=== PATIENT | male | born 1995 | race Caucasian/White ===

== ENCOUNTER 2021-03-03 10:09 | Inpatient (IN) ==
[2021-03-03] MEDS ORDERED: GI COCKTAIL ED USE PO ONE (10:39)
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
[2021-03-03 12:24] LABS: Basophils # (auto) 0.01 K/uL (0-0.2); Basophils % (auto) 0.2 %; Eosinophils # (auto) 0.07 K/uL (0-0.5); Eosinophils % (auto) 1.1 %; Hematocrit (blood only) 43.5 % (42-52); Hemoglobin 15.3 g/dL (14.0-18.0); Immature Granulocytes # (auto) 0.01 K/uL (0.00-0.02); Immature Granulocytes % (auto) 0.2 %; Lymphocytes # (auto) 1.58 K/uL (1.2-3.4); Lymphocytes % (auto) 24.2 %; Mean Corpuscular Hemoglobin 31.1 pg (25-34); Mean Corpuscular Hgb Conc 35.2 g/dL (32-36); Mean Corpuscular Volume 88.4 fL (80-100); Mean Platelet Volume 10.4 fL (7.4-10.4); Monocytes # (auto) 0.54 K/uL (0.11-0.59); Monocytes % (auto) 8.3 %; Neutrophils # (auto) 4.32 K/uL (1.4-6.5); Platelet Count 296 K/uL (130-400); RDW Coefficient of Variation 13.5 % (11.5-14.5); RDW Standard Deviation 43.5 fL (36.4-46.3); Red Blood Count 4.92 M/uL (4.7-6.1); White Blood Count 6.53 K/uL (4.8-10.8)
[2021-03-03 12:37] LABS: Albumin Level 4.7 gm/dl (3.4-5.0); BUN Creatinine Ratio 10.7 (10-20); Calcium 9.4 mg/dl (8.5-10.1); Creatinine Clr Calc Pharmacy 110.7 ml/min; Est GFR (African American) 130.9; Est GFR (Non-African American) 112.9; Potassium 4.3 mmol/L (3.5-5.1)
[2021-03-03 12:41] LABS: Acetaminophen 2 ug/ml (10-30); Salicylate < 1.7 mg/dl (2.8-20)
[2021-03-03 12:48] LABS: Albumin Globulin Ratio 1.4 (0.9-2); Bilirubin,Total 0.6 mg/dl (0.2-1); Globulin 3.4 gm/dl (2.5-4.0); Thyroid Stimulating Hormone 1.33 uIu/ml (0.300-4.500); Total Protein 8.1 gm/dl (6.4-8.2)
[2021-03-03 13:30] LABS: Appearance Urine Cloudy (Clear); Bacteria Urine Automated Negative (Negative); Bilirubin Urine Negative (Negative); Blood Urine Negative (Negative); Cast Urine Automated 0 /lpf (0-5); Color Urine Yellow; Glucose Urine UA Negative (Negative); Ketones Urine Trace (Negative); Leukocyte Esterase Urine Negative (Negative); Nitrite Urine Negative (Negative); Protein Urine Negative (Negative); RBC Urine Automated 0-4 /hpf (0-4); Urobilinogen Urine Negative (Negative)
[2021-03-03 14:01] LABS: Amphetamines+Metham, Urine Neg (Neg); Barbiturates, Urine Neg (Neg); Benzodiazepine, Urine Neg (Neg); Cocaine, Urine Neg (Neg); MDMA (Ecstacy), Urine Neg (Neg); Methadone, Urine Neg (Neg); Opiate, Urine Neg (Neg); Phencyclidine, Urine Neg (Neg)
[2021-03-03 14:13] LABS: Influenza A virus by PCR Negative (Neg); Influenza B virus by PCR Negative (Neg); RSV by PCR Negative (Neg); SARS CoV2 RNA(COVID-19) InHosp NEGATIVE (Negative)
[2021-03-03] MEDS ORDERED: ACETAMINOPHEN 500 MG TAB PO STA (14:26)
[2021-03-03] MEDS ORDERED: MAGNESIUM HYDROXIDE SUSP 30 ML UDC PO PRN (17:42)
[2021-03-03] MEDS ORDERED: BISMUTH SUBSALICYLATE LIQD 236 ML PO PRN (17:42)
[2021-03-03] MEDS ORDERED: SODIUM CHLORIDE 0.65% NA SOLN 45 ML (OCEAN) PRN (17:42)
[2021-03-03] MEDS ORDERED: hydrOXYzine HCl 25 MG TAB PO PRN (17:42)
[2021-03-03] MEDS ORDERED: ALUMINUM/MAGNESIUM SUSP 30 ML UDC PO PRN (17:42)
[2021-03-03] MEDS ORDERED: GABAPENTIN 300 MG CAP PO STA (18:24)
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
[2021-03-03] MEDS: diazePAM 5 MG TABLET PO SCH (20:56)
[2021-03-03] MEDS: GABAPENTIN 300 MG CAP PO SCH (20:56)
[2021-03-03] MEDS: ACETAMINOPHEN 325 MG TAB PO PRN (20:57)
[2021-03-03] MEDS: hydrOXYzine HCl 25 MG TAB PO PRN (20:58)
[2021-03-03] MEDS ORDERED: LORazepam 0.5 MG TAB PO SCH (21:00)
[2021-03-03] MEDS ORDERED: diazePAM 5 MG TABLET PO SCH (21:00)
--- NOTE | 2021-03-04 06:22 | Electrocardiogram Report ---
Test Reason : Blood Pressure : / mmHG Vent. Rate : 055 BPM Atrial Rate : 055 BPM P-R Int : 132 ms QRS Dur : 080 ms QT Int : 392 ms P-R-T Axes : 063 087 067 degrees QTc Int : 375 ms Sinus bradycardia Otherwise normal ECG When compared with ECG of 19-FEB-2021 12:40, No significant change was found Confirmed by Rene Love ([id number]) on 03/04/2021 6:22:16 AM Referred By: Confirmed By:Rene Love
[2021-03-04] MEDS: GABAPENTIN 300 MG CAP PO SCH ×3 (09:37→21:05)
[2021-03-04] MEDS: diazePAM 5 MG TABLET PO SCH ×2 (09:37→21:05)
[2021-03-04] MEDS: SERTRALINE HCL 50 MG TABLET PO SCH (09:37)
[2021-03-04] MEDS ORDERED: PSEUDOEPHEDRINE HCL 30 MG TAB PO PRN (10:10)
[2021-03-04] MEDS: LIDOCAINE 5% 1 PATCH TD SCH (11:13)
[2021-03-04] MEDS: PANTOprazole 40 MG TAB PO SCH (11:13)
--- NOTE | 2021-03-04 14:18 | Psychiatric Progress Note ---
Date of Service March 04, 2021 Impression / Recommendations Impression This 25-year-old man has presented to the emergency department 16 times recently. On each presentation he offers multiple vague physical complaints involving multiple systems, and on examination and extensive testing no underlying explanatory illnesses or abnormalities can be found that might explain the patient's multiple complaints. In fact, some of the complaints do not seem to be consistent with anatomy. The presents with symptoms consistent with somatization disorder, but there are also marked features of hypochondriasis and obsessive-compulsive disorder, as well as certain obsessive- compulsive personality traits. The nature and degree of these symptoms are so severe that he has essentially been unable to function at home and, by his own admission, is essentially confined to bed most of the time at this point. He is also been losing weight fairly rapidly. He notes that his obsessive concerns about his physical health, and his multiple somatic complaints are such that he has not wanted to eat, and within this context has lost an estimated 25 to 30 pounds in the past month or two. 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 Patient also reports that he has a medical marijuana card, but uses marijuana infrequently. Reviewed 03/04/21. (1) Somatization disorder: severe somatic symptom disorder, Dr. Preciado initiated change of Ativan to Valium yesterday, restart of Neurontin, and start of Zoloft for obsessiveness on 03/03 so will just monitor response, in meantime offer small gestures of symptomatic releif with antacid, decongestant, lidoderm patch prn as comfort measure. MNPR as above. He is clearly unable to function outside of the hospital at this time. Inventory Assets Strengths: Motivated to treatment. Cooperative. Supportive family. Intelligent. Educated. Needs: Relief from obsessive symptoms regarding his physical health. Risk Factors Assessment Male: Yes : Yes Do You Have Access To A Gun?: No Health Problems: Yes (The patient is convinced that he has serious health problems.) Mental Health Diagnoses: Yes Substance Use Disorders: No Previous Attempt: No Family History of Suicide: No Previous Psychiatric Hospitalization: No Hopelessness: No Smoker: No Protective Factors Assessment Orthodox Beliefs: No : No (Committed romantic relationship with girlfriend) Responsible for Young Children: No Employed: No Stable Relationships: Yes Supportive Family: Yes Good Rapport with Provider: Yes Absence of Any Risk Factors Above: No Interval History Identifying Information 25 yo male admit 201 for inability to care for self following multiple trips to ED for somatic symptoms. Chief Complaint "my bones ache, I know there is something wrong with me that they just haven't found yet". Review of Systems Sleep Information Total Hours of Sleep: 7.25 Meal Information Percent Meal Consumed - Breakfast: 95 Percent Meal Consumed - Lunch: 90 Subjective Subjective Patient was seen & assessed and interval progress reviewed with nursing and social work. Believes he is weak and immunologically compromised. Focussed on diffuse nerve pain, bloody nose (tinged on tissue when blows nose), facial bone pain, hopelessness about his life in general and ability to get appropriate medical work up. unable to function "normally", doesn't feel he is safe to be in group (to experience this around others) and became extremely tearful relating his concerns about his room/bathroom. MNPR ordered due to severity of patient's condition. Physical Exam Psychiatric Orientation: alert, oriented x 3 and cooperative Apperance: appropriately dressed, appropriately groomed and appeared stated age Eye Contact: good eye contact Motor Behavior: steady gait and station Affect: + anxious affect Mood: + depressed mood and + anxious mood Thought Process: + circumstantial thought process Thought Content: reality based without delusions Suicidal Thoughts: denies suicidal thoughts Homicidal Thoughts: denies homicidal thoughts Hallucinations: no auditory hallucinations and no visual hallucinations Cognition: recent memory grossly intact and language grossly intact Estimated Intelligence: + above average estimated intelligence Insight: + limited insight Judgement: + limited judgement Vital Signs (Past 24 Hours) Last Vital Signs Temp 36.5 C 03/04/21 06:42 Pulse 75 03/04/21 06:42 Resp 16 03/04/21 06:42 BP 132/69 03/04/21 06:42 Pulse Ox 99 03/03/21 19:02 Results & Data ([facility]) Laboratory Results Laboratory Results - last 24 hr 03/03/21 13:27 SARS-CoV-2 (PCR) NEGATIVE Influenza Type A (PCR) Negative Influenza Type B (PCR) Negative RSV (RT-PCR) Negative Current Inpatient Medications Current Inpatient Medications: Current Inpatient Medications Acetaminophen (Acetaminophen 325 Mg Tab) 650 mg PO Q4H PRN PRN Reason: Headache or Minor Fever Stop: 04/02/21 17:41 Last Admin: 03/03/21 20:57 Dose: 650 mg Documented by: Al Hydrox/Mg Hydrox/Simethicone (Aluminum/Magnesium Susp 30 Ml Udc) 30 ml PO Q4H PRN PRN Reason: GI Upset Stop: 04/02/21 17:41 Bismuth Subsalicylate (Bismuth Subsalicylate Liqd 236 Ml) 15 ml PO PRN PRN PRN Reason: Loose Stool Stop: 04/02/21 17:41 Diazepam (Diazepam 5 Mg Tablet) 5 mg PO BID ERIC Stop: 04/02/21 20:59 Last Admin: 03/04/21 09:37 Dose: 5 mg Documented by: Gabapentin (Gabapentin 300 Mg Cap) 300 mg PO TID ERIC Stop: 04/02/21 20:59 Last Admin: 03/04/21 13:27 Dose: 300 mg Documented by: Hydroxyzine HCl (Hydroxyzine Hcl 25 Mg Tab) 50 mg PO HSZ PRN PRN Reason: Insomnia Stop: 04/02/21 17:41 Last Admin: 03/03/21 20:58 Dose: 50 mg Documented by: Hydroxyzine HCl (Hydroxyzine Hcl 25 Mg Tab) 25 mg PO Q4H PRN PRN Reason: Anxiety Stop: 04/02/21 17:41 Lactobacillus Acidoph/Casei/Rhamnos (Advanced Probiotic 1250 Mg Capsule) 2 cap PO DAILY ER[facility] Stop: 04/04/21 08:59 Lidocaine (Lidocaine 5% 1 Patch) 1 patch TD DAILY ERIC Stop: 04/03/21 10:29 Last Admin: 03/04/21 11:13 Dose: 1 patch Documented by: Magnesium Hydroxide (Magnesium Hydroxide Susp 30 Ml Udc) 30 ml PO DAILY PRN PRN Reason: Constipation Stop: 04/02/21 17:41 Miscellaneous (Remove Lidoderm Patch) 1 ea N/A 2100 ERIC Stop: 04/03/21 20:59 Pantoprazole Sodium (Pantoprazole 40 Mg Tab) 40 mg PO QAM ERIC Stop: 04/03/21 10:14 Last Admin: 03/04/21 11:13 Dose: 40 mg Documented by: Pseudoephedrine HCl (Pseudoephedrine Hcl 30 Mg Tab) 30 mg PO Q6H PRN PRN Reason: Congestion Stop: 04/03/21 10:09 Sertraline HCl (Sertraline Hcl 50 Mg Tablet) 50 mg PO QAM ERIC Stop: 04/03/21 08:59 Last Admin: 03/04/21 09:37 Dose: 50 mg Documented by: Sodium Chloride (Sodium Chloride 0.65% Na Soln 45 Ml ([place])) 1 - 2 sprays NA PRN PRN PRN Reason: Nasal Dryness/Congestion Stop: 04/02/21 17:41 Mental Health & Subst Abuse Tx Therapist Name of Therapist: [facility] Therapist's Date of Therapist Appointment: 03/08/21 Time of Therapist Appointment: 1:30pm Post Discharge Appointments Primary Care Physician Name Of Family Doctor: Brian [facility] Date of Appointment with PCP: 03/08/21 Time of Appointment with PCP: 8:40am Contact Information Discharge Discharge Address: [address] [place] [id number]
[2021-03-04] MEDS: MULTIVITAMIN TAB PO SCH (16:51)
[2021-03-04] MEDS: hydrOXYzine HCl 25 MG TAB PO PRN (22:59)
[2021-03-05] MEDS: LIDOCAINE 5% 1 PATCH TD SCH (08:38)
[2021-03-05] MEDS: GABAPENTIN 300 MG CAP PO SCH ×3 (08:39→20:55)
[2021-03-05] MEDS: ADVANCED PROBIOTIC 1250 MG CAPSULE PO SCH (08:39)
[2021-03-05] MEDS: PANTOprazole 40 MG TAB PO SCH (08:39)
[2021-03-05] MEDS: SERTRALINE HCL 50 MG TABLET PO SCH (08:39)
[2021-03-05] MEDS: MULTIVITAMIN TAB PO SCH (08:39)
[2021-03-05] MEDS: diazePAM 5 MG TABLET PO SCH ×2 (08:39→20:55)
[2021-03-05] MEDS: PSEUDOEPHEDRINE HCL 30 MG TAB PO SCH ×3 (10:52→20:55)
[2021-03-05 11:17] LABS: Iron 92 mcg/dl (35-175); Total Iron Binding Capacity 352 mcg/dl (250-450)
--- NOTE | 2021-03-05 11:19 | Psychiatric Progress Note ---
Date of Service March 05, 2021 Impression / Recommendations Impression This 25-year-old man has presented to the emergency department 16 times recently. On each presentation he offers multiple vague physical complaints involving multiple systems, and on examination and extensive testing no underlying explanatory illnesses or abnormalities can be found that might explain the patient's multiple complaints. In fact, some of the complaints do not seem to be consistent with anatomy. The presents with symptoms consistent with somatization disorder, but there are also marked features of hypochondriasis and obsessive-compulsive disorder, as well as certain obsessive- compulsive personality traits. The nature and degree of these symptoms are so severe that he has essentially been unable to function at home and, by his own admission, is essentially confined to bed most of the time at this point. He is also been losing weight fairly rapidly. He notes that his obsessive concerns about his physical health, and his multiple somatic complaints are such that he has not wanted to eat, and within this context has lost an estimated 25 to 30 pounds in the past month or two. 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 Patient also reports that he has a medical marijuana card, but uses marijuana infrequently. Reviewed 03/04/21. no improvement in somatic obsessions (1) Somatization disorder: 03/04--severe somatic symptom disorder, Dr. Preciado initiated change of Ativan to Valium yesterday, restart of Neurontin, and start of Zoloft for obsessiveness on 03/03 so will just monitor response, in meantime offer small gestures of symptomatic releif with antacid, decongestant, lidoderm patch prn as comfort measure. MNPR as above. He is clearly unable to function outside of the hospital at this time. 03/06--standing order meds for symptoms that do appear physical (sinus), will check ESR to determine if more rheum work up appropriate here. B12 and iron panel to rule out deficiency as cause of restless legs. Inventory Assets Strengths: Motivated to treatment. Cooperative. Supportive family. Intelligent. Educated. Needs: Relief from obsessive symptoms regarding his physical health. Risk Factors Assessment Male: Yes : Yes Do You Have Access To A Gun?: No Health Problems: Yes (The patient is convinced that he has serious health problems.) Mental Health Diagnoses: Yes Substance Use Disorders: No Previous Attempt: No Family History of Suicide: No Previous Psychiatric Hospitalization: No Hopelessness: No Smoker: No Protective Factors Assessment Holiness Beliefs: No : No (Committed romantic relationship with girlfriend) Responsible for Young Children: No Employed: No Stable Relationships: Yes Supportive Family: Yes Good Rapport with Provider: Yes Absence of Any Risk Factors Above: No Interval History Identifying Information 25 yo male admit 201 for inability to care for self following multiple trips to ED for somatic symptoms. Chief Complaint "I really need an MRI as I'm convinced I have autoimmune disease". Review of Systems Sleep Information Total Hours of Sleep: 6.5 Meal Information Percent Meal Consumed - Breakfast: 90 Percent Meal Consumed - Lunch: 90 Percent Meal Consumed - Dinner: 95 Subjective Subjective Patient was seen & assessed and interval progress reviewed with nursing and social work. patient is suggesting since "can't get the care I need here" that he would rather leave the hospital but has not formally requested to withdrawal from care. He has been listing his symptoms and read the list, were all the same symptoms that we discussed yesterday and seemed unaware of this. When I asked about sexual function on ROS he assumed I was asking due to HIV test due to "risky behavior" and I assured him I was just wondering the impact of his symptoms on intimacy with girlfriend. He notes decreased interest. He remained mainly focussed on his sinus related pain, had requested decogestant so ordered scheduled. Appears less restless in group activities. Notes symptoms (obsessions) are worse in the am and after a nap. He admits to past purging and some degree of ongoing orthorexia at home with eating in that looks at packaging and aims to stay below percentages. States he spits up blood this am (unwitnessed) and "not my sinuses" and was given a specimen cup to obtain sample if happens again. Physical Exam Psychiatric Orientation: alert and oriented x 3 Apperance: appropriately dressed, appropriately groomed and appeared stated age Eye Contact: good eye contact Motor Behavior: steady gait and station Affect: + anxious affect Mood: + depressed mood and + anxious mood Thought Process: + perseveration Thought Content: + hopelessness Suicidal Thoughts: denies suicidal thoughts Homicidal Thoughts: denies homicidal thoughts Hallucinations: no auditory hallucinations, no visual hallucinations and no gustatory hallucinations Cognition: language grossly intact Estimated Intelligence: + above average estimated intelligence Insight: + limited insight Judgement: + limited judgement Vital Signs (Past 24 Hours) Last Vital Signs Temp 36.4 C L 03/05/21 06:52 Pulse 81 03/05/21 06:52 Resp 17 03/05/21 06:52 BP 118/79 03/05/21 06:52 Pulse Ox 99 03/03/21 19:02 Results & Data ([facility]) Laboratory Results Laboratory Results - last 24 hr 03/05/21 03/05/21 03/05/21 10:45 10:45 10:45 ESR 4 Iron Pending TIBC Pending Vitamin B12 Pending Folate Pending Current Inpatient Medications Current Inpatient Medications: Current Inpatient Medications Acetaminophen (Acetaminophen 325 Mg Tab) 650 mg PO Q4H PRN PRN Reason: Headache or Minor Fever Stop: 04/02/21 17:41 Last Admin: 03/03/21 20:57 Dose: 650 mg Documented by: Al Hydrox/Mg Hydrox/Simethicone (Aluminum/Magnesium Susp 30 Ml Udc) 30 ml PO Q4H PRN PRN Reason: GI Upset Stop: 04/02/21 17:41 Bismuth Subsalicylate (Bismuth Subsalicylate Liqd 236 Ml) 15 ml PO PRN PRN PRN Reason: Loose Stool Stop: 04/02/21 17:41 Diazepam (Diazepam 5 Mg Tablet) 5 mg PO BID [facility] Stop: 04/02/21 20:59 Last Admin: 03/05/21 08:39 Dose: 5 mg Documented by: Gabapentin (Gabapentin 300 Mg Cap) 300 mg PO TID [facility] Stop: 04/02/21 20:59 Last Admin: 03/05/21 08:39 Dose: 300 mg Documented by: Hydroxyzine HCl (Hydroxyzine Hcl 25 Mg Tab) 50 mg PO HSZ PRN PRN Reason: Insomnia Stop: 04/02/21 17:41 Last Admin: 03/04/21 22:59 Dose: 50 mg Documented by: Hydroxyzine HCl (Hydroxyzine Hcl 25 Mg Tab) 25 mg PO Q4H PRN PRN Reason: Anxiety Stop: 04/02/21 17:41 Last Admin: 03/04/21 18:16 Dose: 25 mg Documented by: Lactobacillus Acidoph/Casei/Rhamnos (Advanced Probiotic 1250 Mg Capsule) 2 cap PO DAILY ERIC Stop: 04/04/21 08:59 Last Admin: 03/05/21 08:39 Dose: 2 cap Documented by: Lidocaine (Lidocaine 5% 1 Patch) 1 patch TD DAILY ERIC Stop: 04/03/21 10:29 Last Admin: 03/05/21 08:38 Dose: 1 patch Documented by: Magnesium Hydroxide (Magnesium Hydroxide Susp 30 Ml Udc) 30 ml PO DAILY PRN PRN Reason: Constipation Stop: 04/02/21 17:41 Miscellaneous (Remove Lidoderm Patch) 1 ea N/A 2100 ERIC Stop: 04/03/21 20:59 Last Admin: 03/04/21 21:06 Dose: 1 ea Documented by: Multivitamins (Multivitamin Tab) 1 tab PO QAM ERIC Stop: 04/03/21 15:59 Last Admin: 03/05/21 08:39 Dose: 1 tab Documented by: Pantoprazole Sodium (Pantoprazole 40 Mg Tab) 40 mg PO QAM [facility] Stop: 04/03/21 10:14 Last Admin: 03/05/21 08:39 Dose: 40 mg Documented by: Pseudoephedrine HCl (Pseudoephedrine Hcl 30 Mg Tab) 30 mg PO TID ERIC Stop: 04/04/21 10:29 Last Admin: 03/05/21 10:52 Dose: 30 mg Documented by: Sertraline HCl (Sertraline Hcl 100 Mg Tablet) 100 mg PO QAM [facility] Stop: 04/05/21 08:59 Sodium Chloride (Sodium Chloride 0.65% Na Soln 45 Ml ([place])) 1 - 2 sprays NA PRN PRN PRN Reason: Nasal Dryness/Congestion Stop: 04/02/21 17:41 Mental Health & Subst Abuse Tx Therapist Name of Therapist: [facility] Therapist's Date of Therapist Appointment: 03/07/21 Time of Therapist Appointment: 1:30pm Post Discharge Appointments Primary Care Physician Name Of Family Doctor: Brian Francisco [facility] Date of Appointment with PCP: 03/08/21 Time of Appointment with PCP: 8:50am Specialist Name of Specialist: [facility] Phone Number for Specialist: [phone] Date of Appointment with Specialist: 03/09/21 Time of Appointment with Specialist: 8:30am Contact Information Discharge Discharge Address: [address] [place] [address],[place] [id number]
[2021-03-05 11:53] LABS: Folate (Folic Acid) > 20.00 ng/ml (>5.38); Vitamin B12 615 pg/ml (193-986)
[2021-03-05] MEDS: ACETAMINOPHEN 325 MG TAB PO PRN (18:46)
[2021-03-05] MEDS: hydrOXYzine HCl 25 MG TAB PO PRN (20:55)
[2021-03-05 23:33] LABS: Marijuana Quant, GCMS Urine 79 ng/mL (<5)
[2021-03-06] MEDS ORDERED: SERTRALINE HCL 100 MG TABLET PO SCH (09:00)
[2021-03-06] MEDS: LIDOCAINE 5% 1 PATCH TD SCH (09:19)
[2021-03-06] MEDS: ADVANCED PROBIOTIC 1250 MG CAPSULE PO SCH (09:19)
[2021-03-06] MEDS: GABAPENTIN 300 MG CAP PO SCH (09:19)
[2021-03-06] MEDS: MULTIVITAMIN TAB PO SCH (09:19)
[2021-03-06] MEDS: diazePAM 5 MG TABLET PO SCH (09:20)
[2021-03-06] MEDS: PSEUDOEPHEDRINE HCL 30 MG TAB PO SCH (09:20)
[2021-03-06] MEDS: PANTOprazole 40 MG TAB PO SCH (09:20)
--- NOTE | 2021-03-06 11:07 | Discharge Summary ---
Date of Service March 06, 2021 History of Present Illness per admitting clinician: The patient is a 25-year-old man with no previous known psychiatric diagnoses. Psychiatry was asked to consult on the patient who was in the emergency department today for the 16th time in approximately 2 weeks. He repeatedly presents in the emergency room with multiple vague somatic complaints. While these complaints are too numerous to easily catalog, he is convinced, for example, that the long bones of his body are somehow diseased and are causing chronic pain in his extremities. He also complains of hip pain, and says that he believes that his entire peripheral nervous system is "screwed up." Further, he reports that there are diffuse problems with his integumentary system, with migrating burning pain throughout, and a sense that his skin is starting to peel. He regularly reports multiple diffuse abdominal pains of various descriptions and in various regions. He periodically wonders if he may have liver disease, kidney disease, an ulcer, or some form of colitis. Another major somatic area of concern is the patient's sinuses, and he says that he knows that he has "a sinus infection" with periodic bleeding from his nose. Furthermore, he notes that he has chronic pain that radiates up and down his spine, from the base of his skull through the cervical spine, thoracic spine, lumbar spine and coccyx. Some of the reports are inconsistent with anatomy. For example, he associates cervical pain with numbness, tingling, and weakness in both of his lower extremities, simultaneously. By report, the patient was previously fairly high functioning. However, he tells me that he has diagnosed himself as having "OCD." He describes becoming very anxious if things are not in order and he becomes obsessed with keeping things in order, organizing his surroundings, and, more consistent with obsessive-compulsive personality traits, he also reports that he is devoted to rules and lists. Within that context of his multiple somatic complaints, the patient reports that his ability to functi on has deteriorated to the point that he generally does not get out of bed and spends all day focusing on his various complaints. He also says that his anxiety about his health has been such that he has not been eating and, within this context, has lost approximately 25 to 30 pounds in a matter of a month or two. The patient notes that at the root of his concern is the idea that he may have a yet to be diagnosed dreaded disease of some sort, but he says that he cannot say what it might be. Patient also mentions, and passing, that if he were not to be ill he would ask his longtime girlfriend to him. He adds that because of his multiple physical complaints and concerns about a serious undiagnosed health problem he feels that he cannot propose, even though his girlfriend is evidently expecting him to. Also, within the context of his distressed regarding the above circumstances, he acknowledges that he has been feeling both depressed and anxious. Of note is that the patient has undergone extensive diagnostic testing, both as part of his multiple visits recently to the emergency department, as well as by community providers. These tests and examinations have not revealed any demonstrable underlying physical problem that might explain the patient's various somatic complaints. The toxicology screen was positive for marijuana. He acknowledges that he has a medical marijuana card, but uses marijuana "sparingly." He has a history of a past conviction for possession of marijuana. There is a reference in the patient's [facility] problem list to "high risk sexual behaviors." The patient says that this, he believes, is a function of the fact that he told his somatic physician television production assistant that he has engaged in unprotected sex over the course of his life. An HIV test was done pursuant to that and the results were negative. Physical Exam Psychiatric See admission H&P and DOD summary. Vital Signs (Past 24 Hours) Last Vital Signs Temp 36.4 C 03/06/21 06:00 Pulse 58 L 03/06/21 06:48 Resp 16 03/06/21 06:00 BP 109/74 03/06/21 06:48 Pulse Ox 99 03/03/21 19:02 Principal Diagnosis major depressive disorder somatization disorder Psychiatric Data See daily stay summary. In short, safety was maintained and the patient was cooperative with care. Medication changes included switch of Ativan to longer acting Valium, restart of Neurontin, and trial of Zoloft to target depression and anxiety, particularly obsessions around health. He is aware that dose will likely need titrated further on an outpatient basis. He remained very focussed on having autoimmune disease, need for an MRI, and multiple symptoms across whole body systems--muscular and neurologic. He and his mother were concerned he was not getting appropriate work up here for encephalitis. Focussed on coping and symptomatic pain control. He consistently denied suicidal thoughts while hospitalized. Patient did report a history of disordered eating, purging around wrestling. Remains focussed on his weight loss but ate well here. Was not witnessed as restricting or spitting up blood like he reported. He was better able to redirect anxious thoughts in the afternoon/evening and socialized well with peers. A family session was held with girlfriend and safety plan was completed prior to discharge. Discussed that his plan is more coping focussed to avoid non-urgent trips to the ED seeking additional work up and that his concerns are best addressed outpatient with ongoing therapy/team approach with PCP and specialists. PDMP was queried prior to issuing rx of Valium (started here by Dr. Preciado). Reviewed that should not be combined with ETOH or other sedating substances and he is aware of risk of addiction. 1 week supply was given of most of his medications as recent frequent changes given number of visits. Day of Discharge Assessment Today the patient voices readiness for discharge. They note improvement in mood and deny thoughts to harm self or others. Thoughts remain organized and they are improved from admission. There is no evidence of psychosis. They agree to take mediations as prescribed and keep follow-up appointments. Reports significant decrease in pain. They are stable for discharge to outpatient level of care. Transition of Care Transition Of Care Record: was reviewed with the patient Advance Directives Advance Directives Information Provided: Yes Advance Directives: No Mental Health Advance Directive: No Advance Directives on File: No Living Will: No Power of Chief Nuclear Medicine Technologist: No Advance Directives Reason:: Declines as Mental Health Visit. Risk Factors Assessment Male: Yes : Yes Do You Have Access To A Gun?: No Health Problems: Yes (The patient is convinced that he has serious health problems.) Mental Health Diagnoses: Yes Substance Use Disorders: No Previous Attempt: No Family History of Suicide: No Previous Psychiatric Hospitalization: No Hopelessness: No Smoker: No Protective Factors Assessment [employer] Beliefs: No : No (Committed romantic relationship with girlfriend) Responsible for Young Children: No Employed: No Stable Relationships: Yes Supportive Family: Yes Good Rapport with Provider: Yes Absence of Any Risk Factors Above: No Tobacco Cessation at Discharge Tobacco Cessation Medication Prescribed at Discharge: Offered & Pt Refused Total Time Total Time Spent: Greater Than 30 Minutes Total Time Includes: Examination of the patient, Discharge Planning and Medication Reconciliation Discharge Data Lab Results 03/03/21 03/03/21 03/03/21 10:33 10:33 10:33 WBC 6.53 RBC 4.92 Hgb 15.3 Hct 43.5 MCV 88.4 MCH 31.1 MCHC 35.2 RDW Std Deviation 43.5 RDW Coeff of Polly 13.5 Plt Count 296 MPV 10.4 Immature Gran % (Auto) 0.2 Neut % (Auto) 66.0 Lymph % (Auto) 24.2 [place] % (Auto) 8.3 Eos % (Auto) 1.1 Baso % (Auto) 0.2 Neut # (Auto) 4.32 Lymph # (Auto) 1.58 [place] # (Auto) 0.54 Eos # (Auto) 0.07 Baso # (Auto) 0.01 Immature Gran # (Auto) 0.01 ESR Sodium 137 Potassium 4.3 Chloride 105 Carbon Dioxide 29 Anion Gap 4.0 BUN 10 Creatinine 0.93 Est Cr Clr Drug Dosing 110.7 Est GFR ( Amer) 130.9 Est GFR (Non-Af Amer) 112.9 BUN/Creatinine Ratio 10.7 Glucose 109 H Calcium 9.4 Iron TIBC Total Bilirubin 0.6 AST 16 ALT 20 Alkaline Phosphatase 74 Total Protein 8.1 Albumin 4.7 Globulin 3.4 Albumin/Globulin Ratio 1.4 Vitamin B12 Folate TSH 1.330 Urine Color Urine Appearance Urine pH Ur Specific [place] Urine Protein Urine Glucose (UA) Urine Ketones Urine Blood Urine Nitrite Urine Bilirubin Urine Urobilinogen Ur Leukocyte Esterase Urine WBC (Auto) Urine RBC (Auto) U Hyaline Cast (Auto) U Epithel Cells (Auto) Urine Bacteria (Auto) Salicylates < 1.7 L Urine Opiates Screen Ur Methadone, Qual Acetaminophen 2 L Urine Barbiturates Ur Phencyclidine (PCP) U Amphetamin/Meth Scrn MDMA (Ecstasy) Screen U Benzodiazepines Scrn Ur Cocaine Metabolite U Marijuana (THC) Screen U Marijuana THC Carboxy Drug Screen Comment Ethyl Alcohol mg/dL COVID-19 Eval Order SARS-CoV-2 (PCR) Influenza Type A (PCR) Influenza Type B (PCR) RSV (RT-PCR) 03/03/21 03/03/21 03/03/21 12:49 13:23 13:23 WBC RBC Hgb Hct MCV MCH MCHC RDW Std Deviation RDW Coeff of Polly Plt Count MPV Immature Gran % (Auto) Neut % (Auto) Lymph % (Auto) [place] % (Auto) Eos % (Auto) Baso % (Auto) Neut # (Auto) Lymph # (Auto) [place] # (Auto) Eos # (Auto) Baso # (Auto) Immature Gran # (Auto) ESR Sodium Potassium Chloride Carbon Dioxide Anion Gap BUN Creatinine Est Cr Clr Drug Dosing Est GFR ( Amer) Est GFR (Non-Af Amer) BUN/Creatinine Ratio Glucose Calcium Iron TIBC Total Bilirubin AST ALT Alkaline Phosphatase Total Protein Albumin Globulin Albumin/Globulin Ratio Vitamin B12 Folate TSH Urine Color Yellow Urine Appearance Cloudy A Urine pH 8.0 H Ur Specific [place] 1.020 Urine Protein Negative Urine Glucose (UA) Negative Urine Ketones Trace H Urine Blood Negative Urine Nitrite Negative Urine Bilirubin Negative Urine Urobilinogen Negative Ur Leukocyte Esterase Negative Urine WBC (Auto) 5-10 H Urine RBC (Auto) 0-4 U Hyaline Cast (Auto) 0 U Epithel Cells (Auto) 10-20 H Urine Bacteria (Auto) Negative Salicylates Urine Opiates Screen Neg Ur Methadone, Qual Neg Acetaminophen Urine Barbiturates Neg Ur Phencyclidine (PCP) Neg U Amphetamin/Meth Scrn Neg MDMA (Ecstasy) Screen Neg U Benzodiazepines Scrn Neg Ur Cocaine Metabolite Neg U Marijuana (THC) Screen Pos H U Marijuana THC Carboxy Drug Screen Comment Ethyl Alcohol mg/dL < 3.0 COVID-19 Eval Order SARS-CoV-2 (PCR) Influenza Type A (PCR) Influenza Type B (PCR) RSV (RT-PCR) 03/03/21 03/03/21 03/03/21 13:23 13:27 13:27 WBC RBC Hgb Hct MCV MCH MCHC RDW Std Deviation RDW Coeff of Polly Plt Count MPV Immature Gran % (Auto) Neut % (Auto) Lymph % (Auto) [place] % (Auto) Eos % (Auto) Baso % (Auto) Neut # (Auto) Lymph # (Auto) [place] # (Auto) Eos # (Auto) Baso # (Auto) Immature Gran # (Auto) ESR Sodium Potassium Chloride Carbon Dioxide Anion Gap BUN Creatinine Est Cr Clr Drug Dosing Est GFR ( Amer) Est GFR (Non-Af Amer) BUN/Creatinine Ratio Glucose Calcium Iron TIBC Total Bilirubin AST ALT Alkaline Phosphatase Total Protein Albumin Globulin Albumin/Globulin Ratio Vitamin B12 Folate TSH Urine Color Urine Appearance Urine pH Ur Specific [place] Urine Protein Urine Glucose (UA) Urine Ketones Urine Blood Urine Nitrite Urine Bilirubin Urine Urobilinogen Ur Leukocyte Esterase Urine WBC (Auto) Urine RBC (Auto) U Hyaline Cast (Auto) U Epithel Cells (Auto) Urine Bacteria (Auto) Salicylates Urine Opiates Screen Ur Methadone, Qual Acetaminophen Urine Barbiturates Ur Phencyclidine (PCP) U Amphetamin/Meth Scrn MDMA (Ecstasy) Screen U Benzodiazepines Scrn Ur Cocaine Metabolite U Marijuana (THC) Screen U Marijuana THC Carboxy 79 H Drug Screen Comment SEE NOTE Ethyl Alcohol mg/dL COVID-19 Eval Order CovFluRsv at [facility] SARS-CoV-2 (PCR) NEGATIVE Influenza Type A (PCR) Negative Influenza Type B (PCR) Negative RSV (RT-PCR) Negative 03/05/21 03/05/21 03/05/21 10:45 10:45 10:45 WBC RBC Hgb Hct MCV MCH MCHC RDW Std Deviation RDW Coeff of Polly Plt Count MPV Immature Gran % (Auto) Neut % (Auto) Lymph % (Auto) [place] % (Auto) Eos % (Auto) Baso % (Auto) Neut # (Auto) Lymph # (Auto) [place] # (Auto) Eos # (Auto) Baso # (Auto) Immature Gran # (Auto) ESR 4 Sodium Potassium Chloride Carbon Dioxide Anion Gap BUN Creatinine Est Cr Clr Drug Dosing Est GFR ( Amer) Est GFR (Non-Af Amer) BUN/Creatinine Ratio Glucose Calcium Iron 92 TIBC 352 Total Bilirubin AST ALT Alkaline Phosphatase Total Protein Albumin Globulin Albumin/Globulin Ratio Vitamin B12 615 Folate > 20.00 TSH Urine Color Urine Appearance Urine pH Ur Specific [place] Urine Protein Urine Glucose (UA) Urine Ketones Urine Blood Urine Nitrite Urine Bilirubin Urine Urobilinogen Ur Leukocyte Esterase Urine WBC (Auto) Urine RBC (Auto) U Hyaline Cast (Auto) U Epithel Cells (Auto) Urine Bacteria (Auto) Salicylates Urine Opiates Screen Ur Methadone, Qual Acetaminophen Urine Barbiturates Ur Phencyclidine (PCP) U Amphetamin/Meth Scrn MDMA (Ecstasy) Screen U Benzodiazepines Scrn Ur Cocaine Metabolite U Marijuana (THC) Screen U Marijuana THC Carboxy Drug Screen Comment Ethyl Alcohol mg/dL COVID-19 Eval Order SARS-CoV-2 (PCR) Influenza Type A (PCR) Influenza Type B (PCR) RSV (RT-PCR) Hospital Course (1) Somatization disorder: 03/04--severe somatic symptom disorder, Dr. Preciado initiated change of Ativan to Valium yesterday, restart of Neurontin, and start of Zoloft for obsessiveness on 03/03 so will just monitor response, in meantime offer small gestures of symptomatic releif with antacid, decongestant, lidoderm patch prn as comfort measure. MNPR as above. He is clearly unable to function outside of the hospital at this time. 03/06--standing order meds for symptoms that do appear physical (sinus), will check ESR to determine if more rheum work up appropriate here. B12 and iron panel to rule out deficiency as cause of restless legs. Mental Health & Subst Abuse Tx Psychiatrist Name of Psychiatrist: Deanna Melendez Psychiatrist's Psychiatric Appointment Comment: Will refer you to their psychiatrist Therapist Name of Therapist: [facility] Therapist's Date of Therapist Appointment: 03/07/21 Time of Therapist Appointment: 1:30 pm Therapy Appointment Comment: Telehealth Post Discharge Appointments Primary Care Physician Name Of Family Doctor: REHANA [facility] Date of Appointment with PCP: 03/08/21 Time of Appointment with PCP: 8:50 am Provider Appointment Comment: Damian Seawind Elif Specialist Name of Specialist: [facility] Phone Number for Specialist: [phone] Date of Appointment with Specialist: 03/09/21 Time of Appointment with Specialist: 8:30 am Specialty Appointment Comment: [address], [place] [address] Smoking Cessation Counseling Tobacco Cessation Medication Prescribed at Discharge: Offered & Pt Refused Contact Information Discharge Discharge [address]: [address] [place] [id number] Discharge Plan Discharge Items Patient Disposition: Home - Self-Care Reason For Visit: MDD Discharge Diagnosis: major depressive disorder Activity: Resume your previous activity Non-emergency contact: Primary Care Provider and Therapist Call non-emergency contact if: you have any medication questions and your symptoms worsen Follow-up/Referrals: Brian Francisco III, CRNP [Primary Care Provider] - Diet: Regular Addtl Attending Provider Instructions: SPECIAL CARE INSTRUCTIONS: 1. Follow through with your scheduled aftercare appointments. If unable to keep an appointment, please call to reschedule. 2. Take your medication only as prescribed. Medication should not be changed or stopped without the approval of your doctor. In the event of worsening symptoms or concerns about side effects, contact your doctor immediately. 3. Utilize new healthy coping skills, anger management skills, and stress management skills learned during your hospitalization. Journal feelings and process them with a support person. Identify stressors or situations that may result in relapse, deterioration or inappropriate behaviors and develop a plan to deal with those issues. 4. If your coping skills are ineffective and you are in crisis, contact your outpatient providers for direction. If unable to reach your providers, please call the [facility] CRISIS LINE AT , go to the [facility] walk-in center at [address], [place], or go to the closest Emergency Room. 5. Avoid alcohol and un-prescribed drugs. 6. You have been provided with the Mental Health Advance Directives Pamphlet for your review. AFTERCARE APPOINTMENTS: * Please call your insurance company prior to your scheduled appointment to confirm your aftercare providers are covered. Take your insurance information to your appointments. WHO TO CALL AND WHEN: Medical Emergencies: For questions or emergencies related to your hospital stay, please contact the Inpatient Behavioral Health Unit at [phone]. A wool grower is on-call 10/06 for the Behavioral Health Unit for emergencies At any time you feel your situation is an emergency, you may also call 911 immediately. Pending Studies at Discharge: No Stand-Alone Forms: My [facility], Smoking Cessation Medications and DC Order Prescriptions: New pseudoephedrine HCl [Suphedrine] 30 mg Tablet 30 mg PO TID 7 Days Qty: 21 RF: 0 sertraline 100 mg Tablet 100 mg PO QAM Qty: 7 RF: 0 gabapentin 300 mg Capsule 300 mg PO TID 7 Days Qty: 21 RF: 0 diazepam 5 mg Tablet 5 mg PO BID 7 Days Qty: 14 RF: 0 pantoprazole 40 mg Tablet,Delayed Release (Dr/Ec) 40 mg PO QAM Qty: 1 RF: 0 multivitamin [Daily-Trinity] Tablet 1 tab PO QAM Qty: 7 RF: 0 lidocaine 5 % Adhesive Patch,Medicated 1 patch transdermal DAILY 7 Days RF: 0 Remove Lidoderm Patch 1 dose Not Applicable 2100 Qty: 1 RF: 0 Discontinued lorazepam 0.5 mg tablet 0.5 mg PO TID PRN (Reason: anxiety) Qty: 20 RF: 0 buspirone 10 mg tablet 10 mg PO BID Qty: 180 RF: 1 propranolol 40 mg tablet 40 mg PO BID RF: 0 citalopram [Celexa] 10 mg tablet 10 mg PO QAM RF: 0 mirtazapine [Remeron] 15 mg tablet 15 mg PO HS RF: 0 Discharge Orders: Discharge Order (Routine); Ordered 03/06/21 Ordered By: Kimberly Joshua Admission Data Admit Date/Time: 03/03/21 17:42 Attending Provider: Kimberly Joshua Admit Provider: Fareed Preciado Primary Care Provider: Brian Francisco III Other Interventions: Discharge Summary Assessment (RN) Last Done: 03/06/21 11:24 PSY Interdisciplinary Discharge Planning Last Done: 03/06/21 11:26 Coding Level of Care Code 08486 D/C day mgmt > 30 min Diagnoses Somatization disorder F45.0
[2021-03-06] MEDS ORDERED: DESTROY THIS MEDICATION ONE (11:12)
== END 2021-03-06 11:49 | disposition home or self-care (01) | DRG 882 ==
LOC: ED 10:09 → 3S 17:42